=== PATIENT | female | born 1990 | race Two or more races ===

== ENCOUNTER 2020-07-12 17:49 | Emergency (ER) | payer MEDICAID, OTHER ==
[~2020-07-12] VITALS: Ht 157.5 cm; Wt 86.2 kg
[2020-07-12 18:00] VITALS: BP 150/71
== END 2020-07-12 19:44 | disposition home or self-care (01) ==
LOC: ER 17:49
DX: J20.9 Acute bronchitis, unspecified (principal); Z20.828 Contact with and (suspected) exposure to other viral communicable diseases
CPT/HCPCS: 36415; 71045; 87426